=== PATIENT | female | born 1980 | race Caucasian/White ===

== ENCOUNTER → 2019-10-19 | Outpatient (CLI) | payer OTHER ==
[~2019-10-19] MED LIST: CITA20 PO; CYCL10 PO; IBUP600 PO; MEDR150I IM; MELA3 PO; Naprosyn500 MG PO; OMEP20ER PO; PROG100 PO; PROP10 PO; Prozac20 MG PO; SPIR25 PO
[2019-10-19 12:57] LABS: BASOPHILS ABSOLUTE AUTO 0.05 K/mm3 (0.00-0.23); BASOPHILS PERCENT AUTO 0 % (0-2); EOSINOPHILS ABSOLUTE AUTO 0.09 K/mm3 (0.00-0.68); EOSINOPHILS PERCENT AUTO 1 % (0-6); Hematocrit 43.6 % (33.0-51.0); Hemoglobin 14.1 g/dL (11.5-16.0); IMMATURE GRAN ABSOLUTE AUTO 0.06 K/mm3 (0.00-0.10); IMMATURE GRAN PERCENT AUTO 1 % (0-1); LYMPHOCYTES ABSOLUTE AUTO 2.01 K/mm3 (0.84-5.20); LYMPHOCYTES PERCENT AUTO 18 % (21-46); MONOCYTES ABSOLUTE AUTO 0.44 K/mm3 (0.16-1.47); MONOCYTES PERCENT AUTO 4 % (4-13); Mean Corpuscular HGB 27.5 pg (26.0-34.0); Mean Corpuscular HGB Conc 32.3 g/dL (31.5-36.5); Mean Corpuscular Volume 85 fL (80-100); Mean Platelet Volume 10.8 fL (9.1-12.4); NEUTROPHILS ABSOLUTE AUTO 8.48 K/mm3 (1.96-9.15); NEUTROPHILS PERCENT AUTO 76 % (41-73); Platelet Count 327 K/mm3 (150-400); RDW Coefficient Variation 14.2 % (11.7-14.2); RDW Standard Deviation 43.4 fL (35.1-46.3); Red Blood Cell Count 5.13 M/mm3 (3.80-5.20); White Blood Cell Count 11.13 K/mm3 (4.00-11.30)
[2019-10-19 13:07] LABS: Alanine Aminotransfer (ALT/SGP 21 U/L (12-78); Albumin, Blood 3.8 g/dL (3.4-5.0); Albumin/Globulin Ratio 0.9 (0.8-1.8); Alk Phos 98 U/L (40-126); Anion Gap 11 mmol/L (6-16); Aspartate Aminotrans (AST/SGOT 14 U/L (12-37); Bilirubin, Total 0.4 mg/dL (0.1-1.0); Blood Urea Nitrogen 14 mg/dL (8-24); Bun/Creatinine Ratio 18.7 (12.0-20.0); CO2, Blood 25 mmol/L (21-32); Calcium, Blood 8.9 mg/dL (8.5-10.1); Chloride, Blood 102 mmol/L (98-108); Creatinine, Blood 0.75 mg/dL (0.40-1.00); Globulin, Blood 4.2 g/dL (2.2-4.0); Glomerular Filtration Rate >60 (60-); Glucose, Blood 90 mg/dL (70-99); Sodium, Blood 138 mmol/L (136-145)
== END ==
LOC: LAB SHORT 12:52 → LAB EV 12:52
PROVIDERS: Nurse Practitioner
DX: R42 Dizziness and giddiness (principal)
CPT/HCPCS: 80053; 85025

== ENCOUNTER 2021-01-01 09:20 | Day surgery (SDC) | payer BC ==
[~2021-01-01] VITALS: Ht 160 cm; Wt 156.3 kg
[~2021-01-01 09:20] MED LIST changes: +ACET500 PO; +LORA.5; +MULVITA PO; +TRAZ50
[2021-01-01] MEDS ORDERED: Norco 5-325 Ta1 EACH PO (09:57)
--- NOTE | 2021-01-01 12:54 | NUR ---
01/01/21 1253 Nikolas Castro [address] SIMS
--- NOTE | 2021-01-01 14:38 | NUR ---
C/O NAUSEA. ZOFRAN 4MG IV GIVEN PER ORDERS. Discharge instructions reviewed with patient. Patient verbalizes understanding. Copy given to patient to take home. Dressing to procedure site clean, dry, intact with no visible drainage, swelling, erythema or bruising noted; X2 sites.
--- NOTE | 2021-01-01 14:45 | NUR ---
Patient up to Ambulate independently. Gait steady with SBA. Ambulated in hallway. Increase pain noted with movement to left quadrant area. Patient states "I would like to go home".
--- NOTE | 2021-01-01 15:10 | NUR ---
Discharged via wheelchair to private car for ride home.
== END 2021-01-01 14:53 | disposition home or self-care (01) ==
LOC: ORSCMMR 09:20 → ORD 11:00 → ORSCMMR 14:53
PROVIDERS: Surgery
PROC: 0DJ04ZZ Inspection of Upper Intestinal Tract, Percutaneous Endoscopic Approach (ICD-10-PCS; principal; 2021-01-01 11:00)
DX: K80.20 Calculus of gallbladder without cholecystitis without obstruction (principal); E66.01 Morbid (severe) obesity due to excess calories; Z68.44 Body mass index [BMI] 60.0-69.9, adult; R16.0 Hepatomegaly, not elsewhere classified; K21.9 Gastro-esophageal reflux disease without esophagitis; Z79.899 Other long term (current) drug therapy
CPT/HCPCS: A9270; J0330; J0690; J1100; J2250; J2405; J2704; J3010; J7120

== ENCOUNTER 2021-03-30 03:13 | Emergency (ER) | payer BC ==
[~2021-03-30] VITALS: Ht 160 cm; Wt 137.0 kg
[~2021-03-30 03:13] MED LIST changes: +Norco 5-325 Ta1 EACH PO
[2021-03-30 05:38] LABS: BASOPHILS ABSOLUTE AUTO 0.07 K/mm3 (0.00-0.23); BASOPHILS PERCENT AUTO 1 % (0-2); EOSINOPHILS ABSOLUTE AUTO 0.11 K/mm3 (0.00-0.68); EOSINOPHILS PERCENT AUTO 1 % (0-6); Hematocrit 42.2 % (33.0-51.0); Hemoglobin 13.9 g/dL (11.5-16.0); IMMATURE GRAN ABSOLUTE AUTO 0.06 K/mm3 (0.00-0.10); IMMATURE GRAN PERCENT AUTO 1 % (0-1); LYMPHOCYTES ABSOLUTE AUTO 2.69 K/mm3 (0.84-5.20); LYMPHOCYTES PERCENT AUTO 23 % (21-46); MONOCYTES ABSOLUTE AUTO 0.61 K/mm3 (0.16-1.47); MONOCYTES PERCENT AUTO 5 % (4-13); Mean Corpuscular HGB 28.7 pg (26.0-34.0); Mean Corpuscular HGB Conc 32.9 g/dL (31.5-36.5); Mean Corpuscular Volume 87 fL (80-100); NEUTROPHILS ABSOLUTE AUTO 7.95 K/mm3 (1.96-9.15); NEUTROPHILS PERCENT AUTO 69 % (41-73); RDW Coefficient Variation 13.4 % (11.7-14.2); RDW Standard Deviation 42.8 fL (35.1-46.3); Red Blood Cell Count 4.84 M/mm3 (3.80-5.20); White Blood Cell Count 11.49 K/mm3 (4.00-11.30)
[2021-03-30 05:41] LABS: Mean Platelet Volume 12.1 fL (9.1-12.4); Platelet Count 247 K/mm3 (150-400)
[2021-03-30 05:49] LABS: Alanine Aminotransfer (ALT/SGP 39 U/L (12-78); Albumin, Blood 3.6 g/dL (3.4-5.0); Albumin/Globulin Ratio 0.9 (0.8-1.8); Alk Phos 99 U/L (50-136); Anion Gap 9 mmol/L (6-16); Aspartate Aminotrans (AST/SGOT 23 U/L (12-37); Bilirubin, Total 0.4 mg/dL (0.1-1.0); Blood Urea Nitrogen 17 mg/dL (8-24); Bun/Creatinine Ratio 23.1 (12.0-20.0); CO2, Blood 20 mmol/L (21-32); Calcium, Blood 8.9 mg/dL (8.5-10.1); Chloride, Blood 109 mmol/L (98-108); Creatinine, Blood 0.74 mg/dL (0.40-1.00); Globulin, Blood 4.2 g/dL (2.2-4.0); Glomerular Filtration Rate >60 (60-); Glucose, Blood 93 mg/dL (70-99); Potassium, Blood 3.8 mmol/L (3.5-5.5); Sodium, Blood 138 mmol/L (136-145); Total Protein, Blood 7.8 g/dL (6.4-8.2)
[2021-03-30 07:50] LABS: Source, Urine Clean Catch
[2021-03-30 07:55] LABS: Bilirubin, Urine Neg (Neg); Blood, Urine 5+ (Neg); Glucose Qualitative, Urine Neg (Neg); Ketones, Urine 3+ (Neg); Leukocyte Esterase, Urine 1+ (Neg); Nitrite, Urine Pos (Neg); Protein, Urine 1+ (Neg); Specific Gravity, Urine 1.025 (1.003-1.022); Urobilinogen, Urine NORM (Normal)
[2021-03-30 08:13] LABS: Appearance, Urine Hazy (Clear); Color, Urine Yellow (P-Yellow)
[2021-03-30 08:19] LABS: Bacteria Few /hpf; Red Blood Cells, Urine 25-50 /hpf (0-2); Squamous Epithelial Cells Few /hpf (Few)
[2021-03-30 08:20] LABS: Calcium Oxalate Crystals Mod /hpf; Mucus Light (0-Heavy)
[2021-03-30] MEDS ORDERED: HYDACE10B PO (08:39)
[2021-03-30] MEDS ORDERED: CEPH500 PO (08:39)
== END 2021-03-30 08:47 | disposition home or self-care (01) ==
LOC: ER 03:13
PROVIDERS: Emergency Medicine
DX: N39.0 Urinary tract infection, site not specified (principal); I88.0 Nonspecific mesenteric lymphadenitis; Z88.2 Allergy status to sulfonamides; Z88.8 Allergy status to other drugs, medicaments and biological substances; Z79.899 Other long term (current) drug therapy
CPT/HCPCS: 36415; 74177; 80053; 81001; 83690; 85025; 87077; 87086; 87186; 96374-59; 96375; 99284-25; J2270; J2405; Q9967

== ENCOUNTER → 2022-04-14 | Outpatient (CLI) | payer OTHER ==
[~2022-04-14] MED LIST changes: +AMPDEX5 PO; +CEPH500 PO; +HYDACE10B PO
== END | disposition home or self-care (01) ==
LOC: LAB 08:42 → LAB SHORT 08:42
DX: N39.3 Stress incontinence (female) (male) (principal); F41.9 Anxiety disorder, unspecified; E88.81 Metabolic syndrome and other insulin resistance; L98.8 Other specified disorders of the skin and subcutaneous tissue; R23.8 Other skin changes; Z86.16 Personal history of COVID-19
CPT/HCPCS: 85651

== ENCOUNTER → 2022-11-10 | Outpatient (CLI) | payer OTHER ==
[2022-11-10 10:02] LABS: C-REACTIVE PROTEIN, EXT RANGE 4.11 mg/dL (0.000-0.300); Uric Acid, Blood 4.5 mg/dL (2.6-6.0)
[2022-11-10 10:05] LABS: Albumin, Blood 3.5 g/dL (3.4-5.0); Albumin/Globulin Ratio 0.9 (0.8-1.8); Bilirubin, Total 0.3 mg/dL (0.1-1.0); Bun/Creatinine Ratio 20.2 (12.0-20.0); Calcium, Blood 8.5 mg/dL (8.5-10.1); Creatinine, Blood 0.6 mg/dL (0.40-1.00); Globulin, Blood 3.8 g/dL (2.2-4.0); Potassium, Blood 4.1 mmol/L (3.5-5.5); Total Protein, Blood 7.3 g/dL (6.4-8.2)
== END | disposition home or self-care (01) ==
LOC: LAB SHORT 08:49 → LAB 08:49
PROVIDERS: Physician Assistant
DX: M65.4 Radial styloid tenosynovitis [de Quervain] (principal)
CPT/HCPCS: 80053; 84550; 85651; 86140

== ENCOUNTER 2022-11-11 14:25 | Emergency (ER) | payer OTHER ==
[~2022-11-11] VITALS: Ht 160 cm; Wt 147.0 kg
[2022-11-11 15:25] LABS: BASOPHILS ABSOLUTE AUTO 0.06 K/mm3 (0.00-0.23); BASOPHILS PERCENT AUTO 1 % (0-2); EOSINOPHILS ABSOLUTE AUTO 0.31 K/mm3 (0.00-0.68); EOSINOPHILS PERCENT AUTO 3 % (0-6); Hematocrit 38.4 % (33.0-51.0); Hemoglobin 12.7 g/dL (11.5-16.0); IMMATURE GRAN PERCENT AUTO 1 % (0-1); LYMPHOCYTES ABSOLUTE AUTO 2.36 K/mm3 (0.84-5.20); LYMPHOCYTES PERCENT AUTO 19 % (21-46); MONOCYTES ABSOLUTE AUTO 0.61 K/mm3 (0.16-1.47); MONOCYTES PERCENT AUTO 5 % (4-13); Mean Corpuscular HGB 29.3 pg (26.0-34.0); Mean Corpuscular HGB Conc 33.1 g/dL (31.5-36.5); Mean Corpuscular Volume 89 fL (80-100); Mean Platelet Volume 10.2 fL (9.1-12.4); NEUTROPHILS ABSOLUTE AUTO 8.75 K/mm3 (1.96-9.15); NEUTROPHILS PERCENT AUTO 72 % (41-73); Platelet Count 269 K/mm3 (150-400); RDW Coefficient Variation 12.6 % (11.7-14.2); RDW Standard Deviation 41.1 fL (35.1-46.3); Red Blood Cell Count 4.33 M/mm3 (3.80-5.20); White Blood Cell Count 12.19 K/mm3 (4.00-11.30)
[2022-11-11 16:02] LABS: Albumin, Blood 3.4 g/dL (3.4-5.0); Albumin/Globulin Ratio 0.9 (0.8-1.8); Bilirubin, Total 0.3 mg/dL (0.1-1.0); Bun/Creatinine Ratio 22.9 (12.0-20.0); C-REACTIVE PROTEIN, EXT RANGE 4.52 mg/dL (0.000-0.300); Calcium, Blood 8.7 mg/dL (8.5-10.1); Creatinine, Blood 0.65 mg/dL (0.40-1.00); Globulin, Blood 3.7 g/dL (2.2-4.0); Potassium, Blood 3.9 mmol/L (3.5-5.5); Total Protein, Blood 7.1 g/dL (6.4-8.2)
[2022-11-11] MEDS ORDERED: CEPH500 PO (18:31)
== END 2022-11-11 18:48 | disposition home or self-care (01) ==
LOC: ER 14:25
PROVIDERS: Physician Assistant
DX: L03.113 Cellulitis of right upper limb (principal); E66.9 Obesity, unspecified; Z68.43 Body mass index [BMI] 50.0-59.9, adult; Z88.2 Allergy status to sulfonamides; Z88.8 Allergy status to other drugs, medicaments and biological substances; Z79.899 Other long term (current) drug therapy; Z87.891 Personal history of nicotine dependence
CPT/HCPCS: 36415; 76882; 80053; 85025; 86140; A9270; J1885

== ENCOUNTER → 2024-08-26 | Outpatient (CLI) | payer OTHER ==
[~2024-08-26] MED LIST changes: +Amphetamine Sal30 MG PO; +CYMBALTA30 M2 PO; +TIZANIDINE HCL213 PO
== END ==
LOC: LAB 13:13 → LAB SHORT 13:13
DX: N87.1 Moderate cervical dysplasia (principal)
CPT/HCPCS: 88305; 88341; 88342

== ENCOUNTER 2024-10-02 16:13 | Emergency (ER) | payer OTHER ==
[~2024-10-02] VITALS: Ht 160 cm; Wt 127.0 kg
[2024-10-02 17:17] LABS: BASOPHILS ABSOLUTE AUTO 0.06 K/mm3 (0.00-0.23); BASOPHILS PERCENT AUTO 1 % (0-2); EOSINOPHILS ABSOLUTE AUTO 0.11 K/mm3 (0.00-0.68); EOSINOPHILS PERCENT AUTO 1 % (0-6); Hematocrit 42.1 % (33.0-51.0); Hemoglobin 13.9 g/dL (11.5-16.0); IMMATURE GRAN ABSOLUTE AUTO 0.04 K/mm3 (0.00-0.10); IMMATURE GRAN PERCENT AUTO 0 % (0-1); LYMPHOCYTES ABSOLUTE AUTO 1.87 K/mm3 (0.84-5.20); LYMPHOCYTES PERCENT AUTO 16 % (21-46); MONOCYTES ABSOLUTE AUTO 0.71 K/mm3 (0.16-1.47); MONOCYTES PERCENT AUTO 6 % (4-13); Mean Corpuscular HGB 29.6 pg (26.0-34.0); Mean Corpuscular Volume 90 fL (80-100); Mean Platelet Volume 10.9 fL (9.1-12.4); NEUTROPHILS ABSOLUTE AUTO 8.81 K/mm3 (1.96-9.15); NEUTROPHILS PERCENT AUTO 76 % (41-73); Platelet Count 250 K/mm3 (150-400); RDW Coefficient Variation 13.7 % (11.7-14.2); RDW Standard Deviation 44.2 fL (35.1-46.3); Red Blood Cell Count 4.69 M/mm3 (3.80-5.20)
[2024-10-02 17:29] LABS: Albumin, Blood 3.6 g/dL (3.4-5.0); Bilirubin, Total 0.5 mg/dL (0.1-1.0); Bun/Creatinine Ratio 21.2 (12.0-20.0); Calcium, Blood 9.1 mg/dL (8.5-10.1); Creatinine, Blood 0.61 mg/dL (0.40-1.00); Globulin, Blood 3.7 g/dL (2.2-4.0); Potassium, Blood 3.7 mmol/L (3.5-5.5); Total Protein, Blood 7.3 g/dL (6.4-8.2)
[2024-10-02] MEDS ORDERED: Ondansetron HCl 2 MG / ML 2ML Vial IV ONE (18:10)
[2024-10-02] MEDS ORDERED: Clindamycin 600mg in D5W 50 ML IV ONE (18:10)
[2024-10-02] MEDS ORDERED: ONDA4 PO (19:32)
[2024-10-02] MEDS ORDERED: DOXY100 PO (19:32)
[2024-10-02] MEDS ORDERED: METO10 PO (20:06)
[2024-10-02 20:30] VITALS: BP 141/90
== END 2024-10-02 20:48 | disposition home or self-care (01) ==
LOC: ER 16:13
PROVIDERS: Student in an Organized Health Care Education/Training Program
DX: S30.1XXA Contusion of abdominal wall, initial encounter (principal); X58.XXXA Exposure to other specified factors, initial encounter; L03.311 Cellulitis of abdominal wall; M79.3 Panniculitis, unspecified; Z88.2 Allergy status to sulfonamides; Z88.8 Allergy status to other drugs, medicaments and biological substances; Z79.899 Other long term (current) drug therapy; Z87.891 Personal history of nicotine dependence
CPT/HCPCS: 74177; 80053; 83605; 85025; 93005; 93010; 96365-59; 96375; 99284-25; J2405; Q9967

== ENCOUNTER → 2024-10-11 | Outpatient (CLI) | payer OTHER ==
[~2024-10-11] MED LIST changes: +DOXY100 PO; +METO10 PO; +ONDA4 PO
[2024-10-11 16:11] LABS: Bacterial Vaginosis PCR Negative (NEGATIVE); Candida glabrata-krusei, PCR NOT DETECTED (NOT DETECT)
[2024-10-11 16:13] LABS: Candida Group, PCR DETECTED (NOT DETECT)
== END ==
LOC: LAB 12:00 → LAB SHORT 12:00
PROVIDERS: Obstetrics & Gynecology
DX: N89.8 Other specified noninflammatory disorders of vagina (principal)
CPT/HCPCS: 87481; 87661; 87801

== ENCOUNTER → 2024-12-27 | Outpatient (CLI) | payer OTHER ==
[~2024-12-27] MED LIST changes: +DULOXETINE HCL60 M1 PO; +LAMOTRIGINE25 M4 PO; +LORAZEPAM0.5 MG PO
[2024-12-27 15:38] LABS: Bacterial Vaginosis PCR Negative (NEGATIVE); Candida Group, PCR NOT DETECTED (NOT DETECT); Candida glabrata-krusei, PCR NOT DETECTED (NOT DETECT)
== END | disposition home or self-care (01) ==
LOC: LAB 12:58 → LAB SHORT 12:58
PROVIDERS: Obstetrics & Gynecology
DX: N89.8 Other specified noninflammatory disorders of vagina (principal)
CPT/HCPCS: 81515

== ENCOUNTER → 2025-06-20 | Outpatient (CLI) | payer OTHER | END | disposition home or self-care (01) | LOC: LAB 13:22 → LAB SHORT 13:22 | PROVIDERS: Obstetrics & Gynecology | DX: N87.9 Dysplasia of cervix uteri, unspecified (principal) | CPT/HCPCS: 87624; G0145 ==

== ENCOUNTER 2025-08-25 09:22 | Day surgery (SDC) | payer OTHER ==
[2025-08-25] VITALS (14 sets, daily range): BP systolic 125–158; BP diastolic 52–83
[~2025-08-25 09:22] MED LIST changes: +CeFAZolin Sodium 2,000 MG in NS 100 ML IV SCH; +LAMO100 PO; -LAMOTRIGINE25 M4 PO; +MULTI-VITAMIN1 EAC2 PO; +TRAZ50 PO; +VITAMIN D33000 UNIT PO
[2025-08-25] MEDS ORDERED: Bupivacaine 0.5% W/EPI 1:200000 SDV 30 ML Vial ONE (09:35)
[2025-08-25] MEDS ORDERED: LAMO25 PO (09:37)
[2025-08-25] MEDS ORDERED: HYDROmorphone HCl/Pf 1MG SYR ONE ×2 (09:47→10:44)
[2025-08-25] MEDS ORDERED: FentaNYL Citrate 50 MCG/ML 2 ML Injection ONE ×3 (09:47→14:34)
[2025-08-25] MEDS ORDERED: Midazolam HCl 1MG / ML 2ML Vial ONE (09:47)
[2025-08-25] MEDS ORDERED: CeFAZolin Sodium 2,000 MG VIAL ONE (09:55)
[2025-08-25] MEDS ORDERED: Dexamethasone Sod Phos 10 MG/ML 1ML VIAL ONE (10:08)
[2025-08-25] MEDS ORDERED: Rocuronium Bromide 10 MG/ML 5ML Injection IV ONE ×2 (10:08→11:19)
[2025-08-25] MEDS ORDERED: Ketamine HCl 100 MG / ML 5ML Vial ONE (10:36)
[2025-08-25] MEDS ORDERED: CeFAZolin Sodium 1000 mg Vial ONE (13:44)
[2025-08-25] MEDS ORDERED: Ondansetron HCl 2 MG / ML 2ML Vial IV PRN ×2 (14:05→15:45)
[2025-08-25] MEDS ORDERED: HYDROmorphone HCl/Pf 1MG SYR IV PRN ×2 (14:05→14:10)
[2025-08-25] MEDS ORDERED: FentaNYL Citrate 50 MCG/ML 2 ML Injection IV PRN ×3 (14:10→15:50)
[2025-08-25] MEDS ORDERED: LORazepam 2 MG/ML 1ML Injection IV PRN (14:10)
[2025-08-25] MEDS ORDERED: Sugammadex Sodium 200 MG/2ML SDV (100 MG/ML) ONE (14:25)
[2025-08-25] MEDS ORDERED: Ondansetron HCl 2 MG / ML 2ML Vial ONE (14:26)
[2025-08-25] MEDS ORDERED: Ketorolac Tromethamine 30mg Vial ONE (14:26)
[2025-08-25] MEDS ORDERED: FLU VACC TS2025-26(6MOS UP)/PF 45 MCG/0.5 ML SYRINGE IM SCH (15:50)
--- NOTE | 2025-08-25 16:34 | NUR ---
POST-OP PATIENT TO ROOM 227 @1615. UP TO THE BATHROOM WITH SBA. REPORTS MILD NAUSEA. UNABLE TO VOID AT THIS TIME. VITALS STARTED AND CONTINUE. ON 2LNC, 95% SPO2. IVF RUNNING @75. PATIENT IS AOX4, DR. MARIE IN TO TALK WITH PATIENT ON SURGICAL OUTCOME. DENIES PAIN. NO BLOOD NOTED ON PERIPAD. ORIENTED TO ROOM AND CALL LIGHT IN ROOM.
[2025-08-25] MEDS ORDERED: Ketorolac Tromethamine 30mg Vial IV SCH (18:00)
[2025-08-25] MEDS ORDERED: DULoxetine HCL 60 MG Capsule DR PO SCH (21:00)
[2025-08-26 04:03] VITALS: BP 139/66
--- NOTE | 2025-08-26 05:26 | NUR ---
SHIFT SUMMARY POD 1 TOTAL HYSTERECTOMY. A&O X4. LAP SITES X5 C/D/I JAKOB. PAIN MANAGED WELL PER EMAR. PT DENIES N&V AND TOLERATING PO INTAKE. PT VOIDING AND REPORTS PASSING FLATUS. PT RESTING IN BED, RESPIRATIONS EVEN AND UNLABORED. CALL LIGHT WITHIN REACH.
[2025-08-26 07:31] VITALS: BP 132/64
[2025-08-26] MEDS ORDERED: OXYC5 PO (09:52)
[2025-08-26] MEDS ORDERED: IBUP400 PO (09:54)
--- NOTE | 2025-08-26 10:41 | NUR ---
DISCHARGE PATIENT READS AND SIGNS ALL DC INTRUCTIONS, VSS, LAP SITES ARE C/D/I. FOLLOW UP APPT MADE. ALL PRESCRIPTIONS PICKED UP BY SPOUSE. PATIENT IS DRESSED AWAITING RIDE HOME, IV TAKEN OUT INTACT.
== END 2025-08-26 10:54 | disposition home or self-care (01) ==
LOC: ORSCMMR 09:22 → ORD 10:30 → ORSCMMR 10:30 → ORD 12:30 → SURS 15:45 → ORSCMMR 08-26 10:54
PROVIDERS: Obstetrics & Gynecology
PROC: 0UT0FZZ Resection of Right Ovary, Via Natural or Artificial Opening With Percutaneous Endoscopic Assistance (ICD-10-PCS; principal; 2025-08-25 10:30)
PROC: 8E0W4CZ Robotic Assisted Procedure of Trunk Region, Percutaneous Endoscopic Approach (ICD-10-PCS; principal; 2025-08-25 10:30)
PROC: 0UT7FZZ Resection of Bilateral Fallopian Tubes, Via Natural or Artificial Opening With Percutaneous Endoscopic Assistance (ICD-10-PCS; principal; 2025-08-25 10:30)
PROC: 0UT9FZZ Resection of Uterus, Via Natural or Artificial Opening With Percutaneous Endoscopic Assistance (ICD-10-PCS; principal; 2025-08-25 10:30)
PROC: 0UBF4ZX Excision of Cul-de-sac, Percutaneous Endoscopic Approach, Diagnostic (ICD-10-PCS; principal; 2025-08-25 10:30)
DX: N94.6 Dysmenorrhea, unspecified (principal); D25.9 Leiomyoma of uterus, unspecified; N80.329 Endometriosis of the posterior cul-de-sac, unspecified depth; N80.121 Deep endometriosis of right ovary; E28.2 Polycystic ovarian syndrome; N13.30 Unspecified hydronephrosis; F41.9 Anxiety disorder, unspecified; F32.A Depression, unspecified; F90.9 Attention-deficit hyperactivity disorder, unspecified type; Z98.84 Bariatric surgery status; E66.01 Morbid (severe) obesity due to excess calories; Z68.41 Body mass index [BMI] 40.0-44.9, adult; Z87.891 Personal history of nicotine dependence; M79.7 Fibromyalgia; Z79.899 Other long term (current) drug therapy
CPT/HCPCS: 86850; 86900; 86901; 88305; 88307; 94760; A9270; J0690; J1100; J1171; J1885; J2250; J2405; J2704; J3010; J7120